=== PATIENT | male | born 1995 | race Caucasian/White ===

== ENCOUNTER 2025-08-07 13:22 | Emergency (ER) | payer OTHER, SELFPAY ==
[2025-08-07 13:23] VITALS: BP 153/107; PULSE 93; RESP 18; TEMP 36.3; O2SAT 99; BMI 30.1
--- NOTE | 2025-08-07 13:32 | RAD_ITS ---
PROCEDURE: RAD/Chest PA and Lateral
--- NOTE | 2025-08-07 13:32 | EKG12_ITS ---
Test Reason : CP
[2025-08-07 13:49] LABS: Hematocrit 44.9 % (40-54); Hemoglobin 15.9 g/dL (13.0-16.5); Immature Granulocytes Count 0.020 X10^3/uL (0.0-0.0); Mean Corp Hgb Conc 35.4 g/dL (32-36); Mean Corpuscular Volume 87.2 fL (80-94); Mean Platelet Vol. 10.1 fl (6.2-12.0); NRBC Flagged by Analyzer 0 % (0-5); Platelet Count 272 K/mm3 (150-450); RBC Distribution Width CV 11.6 % (11.6-14.6); RBC Distribution Width SD 37.4 fl (35.1-43.9); Red Blood Count 5.15 M/mm3 (4.6-6.2); White Blood Count 8.0 K/mm3 (4.4-11.0)
[2025-08-07 14:32] LABS: Anion Gap 13 (5-15); BUN 20 mg/dL (4-19); BUN/Creat Ratio 24.1 RATIO (10-20); Calcium,Total 9.6 mg/dL (7.6-11.0); Carbon Dioxide 23.3 mmol/L (21.0-32.0); Chloride 99 mmol/L (98-108); Estimated Creatinine Clearance 142.09 ml/min (50-250); Glucose 93 mg/dL (70-99); Potassium 4.4 mmol/L (3.3-5.1); Troponin T High Sensitivity 7 ng/L (<=22)
--- NOTE | 2025-08-07 15:14 | EX.ED.DYSGE1 ---
HPI History of Present Illness Chief Complaint: Hypertension Informant: patient Onset/Context/Timing Onset: Today Current Severity: Gone Maximum Severity: Mild Narrative Narrative: 30-year-old male no CeeNU past medical history. He said a history of having elevated blood pressure in the past but has never had it evaluated or been on blood pressure medications. Today he was trying food at a local establishment. Said he got sick and got nausea and felt lightheaded and had some atypical chest pain that was nonexertional. No shortness of breath. He has no cardiac history. He said no recent exertional dyspnea or exertional chest pain. No history of PE or DVT. And they wanted to be evaluated. Currently is feeling better. He did have 1 episode of nausea and vomiting. No abdominal pain. No diarrhea. No fever. Prior similar symptoms: Yes Recent Illness/Hospitalization: No PFSH PFSH Medical History no medical history Allergy/AdvReac Type Severity Reaction Status Date / Time egg (eggs) Allergy Severe Itching Verified 08/07/25 13:32 shellfish derived Allergy Severe Other Verified 08/07/25 13:32 pineapple AdvReac Intermediate Other Verified 08/07/25 13:32 Social History Smoking Status: Never smoker ROS ROS ED ROS Narrative Denies recent illness till today. Constitutional Constitutional ED: Denies chills or fever(s) Eyes Eyes: Denies blurry vision ENT ENT ED: Denies ear pain Cardiovascular Cardiovascular: Reports chest pain Respiratory/Chest Respiratory/Chest: Denies cough, dyspnea or dyspnea on exertion Gastrointestinal Gastrointestinal: Reports nausea and vomiting; Denies abdominal pain, constipation, diarrhea or melena Genitourinary Genitourinary ED: Denies dysuria or hematuria Musculoskeletal Musculoskeletal: Denies arthralgias Integumentary Denies abscess or Abrasions Neurologic Neurologic: Denies headache(s) Psychiatric Psychiatric: Denies anxiety Endocrine Endocrinology: Denies cold intolerance Hematologic/Lymphatic Hematologic/Lymphatic: Reports none Allergic/Immunologic Allergic/Immunologic ED: Denies mouth swelling, tongue swelling or urticaria EXAM Physical Exam Narrative Exam Narrative: 30-year-old male sitting upright in bed. Vital signs stable afebrile. No acute distress. Accompanied by I believe his . Pulse ox 9 9% on room air no signs hypoxia. HEENT exam pupils round react light. Moist mutes membranes. Normal speech. Neck nontender no JVD. Lungs clear to auscultation bilaterally. Heart regular rhythm no murmur. Chest wall ribs nontender. Abdomen soft nontender. Moving all 4 extremities. Normal electrical sign wirer helper strength. Normal dorsi plantarflexion. Equal symmetrical radial pulses. Calves are nontender without edema or cords. Back nontender. Neurologically is awake alert. Answer questions following commands. He is a benign normal exam. Const Vital Signs: 08/07/25 13:23 08/07/25 15:07 08/07/25 15:16 Temperature 97.4 F L Temperature Source Temporal Pulse Rate 93 Respiratory Rate 18 Respiratory Effort Normal Non-Labored Respiratory Pattern Normal Blood Pressure 153/107 H Blood Pressure Mean 122 Pulse Ox 99 95 Oxygen Delivery Method Room Air Room Air 08/07/25 15:16 Temperature Temperature Source Pulse Rate 68 Respiratory Rate 19 H Respiratory Effort Respiratory Pattern Blood Pressure 136/83 H Blood Pressure Mean 100 Pulse Ox 97 Oxygen Delivery Method Room Air Positive well nourished and well developed; Negative for cachectic, contractures or unkempt General Appearance ED: well developed and NAD; Negative for unkempt, cachectic, contractures, cyanotic, diaphoretic or pallor Nutritional Appearance: Negative for cachectic HEENT Reports moist mucous membranes Eyes PERRL and EOMs intact bilaterally Neck no lymphadenopathy, supple and no JVD Chest Wall inspection of chest normal and palpation of chest normal Resp normal respiratory effort and clear to auscultation bilaterally Cardio regular rate, regular rhythm, S1 normal heart sound, S2 normal heart sound and no murmurs Palpation: Negative for palpable S3 or palpable S4 Rate: Negative for bradycardia or tachycardic Rhythm: Negative for abnormal rhythm GI normal to inspection, nondistended, normoactive bowel sounds, non-tender, non-distended and no masses Auscultation: normoactive bowel sounds Palpation: soft; Negative for tender or guarding Back/Spine no CVA tenderness Extremity normal to inspection General Extremety ED: Negative for edema or tenderness General Extremity: Negative for edema Neuro oriented x3 and CN's II-XII intact bilaterally Sensorium / Orientation: alert Motor Exam: strength 5/5 throughout Psych mental status grossly normal Appearance: Negative for unkempt Skin no rashes or lesions noted, no wounds and skin turgor normal General Skin Exam: elasticity normal; Negative for jaundice or pallor Lesions: No lesion noted Rashes: No rashes noted Trauma: Negative for abrasion Wounds: Negative for wounds noted MDM MDM MDM Narrative Medical decision making narrative: 30-year-old male with atypical chest pain. Elevated blood pressure. Exam benign. Initial cardiac workup is unremarkable. Awaiting the second troponin level. Repeat exam patient is doing well at 4:24 PM his blood pressure currently is 138/74. Will hold off on any blood pressure meds. He has a follow-up with a local primary care provider and log his blood pressures and have them evaluate to see if he needs to be started on medications or not. History & Record Review Discussion w/independent historian: Patient and Family Lab Data Attestation: I reviewed the patient's lab results. Lab results narrative: CBC unremarkable. White count 8. H&H 15 and 44. Platelets 272. Electrolytes unremarkable gap 13. BUN and creatinine of 20 and 0.8. Glucose 93. Initial troponin 7. 2-hour troponin is 7 also. Chest x-ray unremarkable. Labs: Laboratory Results - last 24 hr 08/07/25 08/07/25 13:29 15:25 WBC 8.0 RBC 5.15 Hgb 15.9 Hct 44.9 MCV 87.2 MCH 30.9 MCHC 35.4 RDW Std Deviation 37.4 RDW Coeff of Caleb 11.6 Plt Count 272 MPV 10.1 Immature Gran % (Auto) 0.200 Neut % (Auto) 74.0 H Lymph % (Auto) 16.9 L [place] % (Auto) 6.2 Eos % (Auto) 2.0 Baso % (Auto) 0.7 Absolute Neuts (auto) 5.9 Absolute Lymphs (auto) 1.36 Nucleated RBC % 0 Sodium 136 Potassium 4.4 Chloride 99 Carbon Dioxide 23.3 Anion Gap 13 BUN 20 H Creatinine 0.82 Estim Creat Clear Calc 142.09 Est GFR (MDRD) Non-Af 120 BUN/Creatinine Ratio 24.1 H Glucose 93 Calcium 9.6 Troponin T High Sens 7 Troponin T Hi Sens 2 Hr 7 Radiography Chest X-Ray - ED: 2 View, Read by ED Physician, Normal, Heart, Lungs, Mediastinum, Bony Structures, No Acute Disease and Chronic Changes Diagnostic Testing: Clinical Impression(s) from Imaging Studies Chest X-Ray 08/07/25 13:32 IMPRESSION: No acute cardiopulmonary process. Reading Location: [id number] Chest x-ray, 2 views, AP and lateral, normal cardiac silhouette. Normal mediastinum. Normal lung brizuela. No acute bony abnormalities. Rhythm Strip Rhythm Strip: Sinus Rhythm Rate: 79 Ectopy: None EKG Initial EKG: Attestation: I personally reviewed and interpreted this EKG as follows: Interpretation: Sinus Rhythm and No Acute Injury Pattern Comments: Normal sinus rhythm rate of 79 no acute signs of NC or ischemia. Discharge Plan Triage Chief Complaint: Hypertension ED Provider: Fabricio Ca Dx/Rx/DC Orders Clinical Impression: Chest pain, Elevated blood pressure reading Instructions: ED Hypertension, Established, ED Hypertension, To Be Confirmed Primary Care Provider: Care Physician,No Primary Referrals: Homero Hunter MD [Med Staff - Environmental Laboratory Technician, Family Practice] - 1 Week [facility] Doctor,Out of [Non-Staff, Medical] Activity Restrictions/Additional Instructions: Your exam, labs, chest x-ray and EKG are unremarkable. Blood pressure is elevated. I would check your blood pressure once or twice a day over the next week if it stays elevated if the systolic is consistently over 140 of the diastolics consistently 90 or higher. I would follow-up for further evaluation and possible medication. Other things to try to help lower your blood pressure to be daily exercise, walking, meditation. Print Language: Sammarinese Disposition Disposition: Home, Self Care
[2025-08-07 15:16] VITALS: BP 136/83; PULSE 68; RESP 19; O2SAT 95; O2SAT 97
[2025-08-07 16:07] LABS: Troponin T High Sens 2 HR 7 ng/L (<=22)
[2025-08-07 16:30] VITALS: BP 138/74; PULSE 84; RESP 16; TEMP 36.7; O2SAT 97
== END 2025-08-07 16:31 | disposition home or self-care (01) ==
PROVIDERS: Emergency Provider Emergency Medicine; Visit Provider Emergency Medicine
DX: R07.9 Chest pain, unspecified (principal); R03.0 Elevated blood-pressure reading, without diagnosis of hypertension
CPT/HCPCS: 36415; 71046; 80048; 84484; 85025; 93005; 99285; A4216